=== PATIENT | female | born 1955 | race Caucasian/White ===

== ENCOUNTER 2017-01-16 01:25 | Observation (INO) | payer MEDICARE, OTHER ==
--- NOTE | ~2017-01-16 | HP ---
History And Physical [address] [address] NAME: MARIELA CHARLES : 57 STATUS : ADM Dillon PAT#: [id number] AGE: 61 ADM/REG DATE : 01/16/17 MR#: [id number] REPORT SERV DATE: 01/16/17 DICTATED BY: JIM GIVENS DATE: 01/16/17 REPORT STATUS : Draft TRANSCRIBED BY: MODL DATE: 01/16/17 DATE OF ADMISSION: 01/16/2017 CHIEF COMPLAINT: A 61-year-old female presenting with shortness of breath. HISTORY OF PRESENT ILLNESS: The patient's history was obtained through careful interview with the patient, coupled with review of [email or web address] medical records. The patient for the last six days has been dealing with "allergies." She believes this has led to sinus drainage and increasing cough productive of a thick yellowish sputum. She has had increasing shortness of breath characterized by dyspnea on exertion and a prominent wheeze. Today, she tried to spend sometime outside to do some arts and crafts activity and this only worsened her "allergies" and increasing shortness of breath. She describes chest discomfort in the middle of her chest, exacerbated by coughing and breathing, has a fullness and blocking quality, 5/10 severity. She has chronic neck discomfort about an 8 to 9/10 severity, aching, no radiation. She describes anxiety. She feels as if "ants are crawling all over me" and just restless and it is particularly evident in her legs. She describes subjective fevers and chills and a temperature measured up to 100.7 at home. No depression. REVIEW OF SYSTEMS: Otherwise, a 14-point review of systems was obtained and was negative. PAST MEDICAL HISTORY: 1. Asthma, seen by Dr. Sheridan. 2. Bipolar disorder with anxiety and depression. 3. Seizure disorder but possible pseudoseizure disorder (?). 4. Gastroesophageal reflux disorder. 5. Elevated cholesterol. 6. Hypertension. 7. Migraine headaches. 8. Hypothyroidism. 9. Nephrolithiasis. 10.Obstructive sleep apnea, on CPAP. 11.Fibromyalgia. 12.Chronic severe allergies, seen by Dr. Knapp. 13.Negative catheterization of the heart in 2010. History And Physical [address] [address] NAME: MARIELA CHARLES : 57 STATUS : ADM Dillon PAT#: [id number] AGE: 61 ADM/REG DATE : 01/16/17 MR#: [id number] REPORT SERV DATE: 01/16/17 DICTATED BY: JIM GIVENS DATE: 01/16/17 REPORT STATUS : Draft TRANSCRIBED BY: CHRIS DATE: 01/16/17 PAST SURGICAL HISTORY: 1. Cholecystectomy. 2. Tubal ligation. 3. Hysterectomy with oophorectomy. 4. Bladder suspension. 5. Cervical spine surgery in 2000. 6. Foot surgery. 7. Sinus surgery x2. ALLERGIES: SULFA, LIPITOR, CIPRO, AND CEFADROXIL. SOCIAL HISTORY: No tobacco abuse. No alcohol abuse. She is , on disability, has two children ages 12 and 15 years old that are "adopted" and live at home. She lives in [place], [place]. FAMILY HISTORY: Father with myocardial infarction in his 40s, CABG at 45 years of age, at 59 years of age. Mother with cervical cancer. Brother had heart attack in his 40s. CURRENT MEDICATIONS: Include nebulizer, tizanidine, spironolactone 50 mg p.o. daily, pravastatin 40 mg p.o. daily, Mirapex 0.25 mg at night, Protonix 40 mg p.o. daily, Singulair 10 mg p.o. daily, Mobic 7.5 mg p.o. b.i.d., levothyroxine 50 mcg p.o. daily, hydrocodone p.r.n., fluoxetine 20 mg p.o. daily, Klonopin 1 mg p.o. b.i.d. as needed, benazepril 40 mg p.o. daily, and Asmanex nasal spray. PHYSICAL EXAMINATION: VITAL SIGNS: Temperature 97.8, pulse 83, blood pressure 87/72, respiratory rate 24, and O2 saturation 98% on room air. GENERAL: An ill-appearing female, in evidence of described distress from shortness of breath and cough. HEENT: Pupils equal, round, and reactive to light. No conjunctival pallor. No scleral icterus. Nares are patent. Oropharynx is clear of obstruction. Moist mucous membranes. NECK: Trachea midline. No thyromegaly. LYMPH: No cervical lymphadenopathy. No supraclavicular lymphadenopathy. RESPIRATORY: The patient has prominent inspiratory and expiratory wheezes on examination. No upper respiratory rhonchi. No rales. A very labored respiratory effort. CARDIOVASCULAR: Regular rate and rhythm. No murmurs, rubs, or gallops. No extremity edema is appreciated. ABDOMEN: Soft, nontender, nondistended. Normal bowel sounds auscultated throughout. No hepatosplenomegaly. DERMATOLOGIC: Warm and dry extremities. No pallor, no cyanosis. PSYCHIATRIC: Normal affect. Good mood. Alert and oriented x3. LABORATORY DATA: White blood cell count 6.6, hemoglobin 12, hematocrit 37, and platelets 278. Sodium 137, potassium 3.8, chloride 101, bicarb 15, BUN 20, creatinine 0.9, and glucose 126. STUDIES: A report of an x-ray at outlying facility was read as "negative." History And Physical [address] [address] NAME: MARIELA CHARLES : 57 STATUS : ADM Dillon PAT#: [id number] AGE: 61 ADM/REG DATE : 01/16/17 MR#: [id number] REPORT SERV DATE: 01/16/17 DICTATED BY: JIM GIVENS DATE: 01/16/17 REPORT STATUS : Draft TRANSCRIBED BY: CHRIS DATE: 01/16/17 ASSESSMENT AND PLAN: 1. Asthma exacerbation. Place on IV Solu-Medrol, DuoNeb nebulizers, doxycycline. Check a chest x-ray here at our facility. 2. Bipolar disorder with anxiety, p.r.n. IV Ativan. 3. Metabolic acidosis. Recheck a basic metabolic panel. Check lactic acid. Check ABG. 4. Obstructive sleep apnea, on CPAP. KPL/MODL Jim Givens M.D. / [id number] CC: Rudolph Vanessa Jr, MD Ted Scoggins, M.D.
--- NOTE | ~2017-01-16 | DS ---
Discharge Summary [facility] [address] [place]. [address] NAME: MARIELA CHARLES : 57 STATUS : DIS Dillon PAT#: [id number] AGE: 61 ADM/REG DATE : 01/16/17 MR#: [id number] REPORT SERV DATE: 01/17/17 DICTATED BY: RAFY CHARLES SCOT DATE: 01/16/17 REPORT STATUS : Draft TRANSCRIBED BY: MODL DATE: 01/16/17 ADMISSION DATE: 01/16/2017 DISCHARGE DATE: 01/16/2017 DISCHARGE DIAGNOSES: 1. Asthma exacerbation. 2. Hypothyroidism with most recent TSH 0.277. 3. Obstructive sleep apnea with current CPAP therapy. 4. Hypertension. 5. History of bipolar disorder. 6. Chronic pain syndrome. DISCHARGE MEDICATIONS: As follows: Doxycycline 100 mg twice a day for 4 more days, Lotensin 40 mg daily, Astelin nasal spray twice a day, Prozac 20 mg daily, Flonase nasal spray daily, Atrovent nasal spray 3 times a day, Mobic 7.5 mg twice a day, prednisone tapering prescription 20 mg two tabs x4 days, 1 tab daily after that for 4 days then half tab daily after that for 4 days, Singulair 10 mg at bedtime, Protonix 40 mg daily, potassium 10 mEq daily, Mirapex 0.25 mg at bedtime, Pravachol 40 mg at bedtime, Aldactone 50 mg daily, Zanaflex 4 mg twice a day, Klonopin 1 mg p.o. twice a day, Asmanex 2 puffs inhaled twice a day, [place] 10/325 one tablet every six hours p.r.n., Ventolin 2 puffs every six hours p.r.n. for shortness of breath. HISTORY OF PRESENT ILLNESS: This is a 61-year-old, white female, presented with shortness of breath. Please see the initial H and P of Dr. Calixto Dukes. This patient is admitted to the Hospitalist Service for further evaluation and treatment, admitted under observation, given IV Solu-Medrol, DuoNeb nebulizers, and started on doxycycline. HOSPITAL COURSE: I saw the patient the following day where she was feeling much better and requesting to go home. On exam, she did have a mild expiratory wheeze but overall symptoms had improved a tremendous amount. She had slept on her CPAP therapy the evening. Lab work revealed a procalcitonin that was negative and did have a TSH that was low at 0.277. She stated that her Synthroid had recently been increased. So I have instructed her to follow up with her primary care in regard to her Synthroid dosage and she has a appointment the following week. Now, her primary care is Dr. Star Doyle. The patient was felt safe for discharge home with the above medication regimen, followup plan. EVARISTO/CHRIS Rafy Charles NP / [id number] Discharge Summary [address] [address] NAME: MARIELA CHARLES : 57 STATUS : DIS Dillon PAT#: [id number] AGE: 61 ADM/REG DATE : 01/16/17 MR#: [id number] REPORT SERV DATE: 01/17/17 DICTATED BY: RAFY CHARLES DATE: 01/16/17 REPORT STATUS : Draft TRANSCRIBED BY: CHRIS DATE: 01/16/17 CC: Rudolph Vanessa Jr, MD
[~2017-01-16 01:25] MED LIST: ALLEGRA180 PO; ATRONASAL3 NAS; ATRONASAL6 NAS; FISH-EPA1000 MG PO; FLONASE NAS; IPRATROPIUM NAS; KLONO1 PO; KLONOPIN PO; KLONOPIN WAF0.25 MG PO; LOTE20 PO; LOTE40 PO; MIRAPEX PO; MIRAPEX250 PO; MOBIC7.5 PO; MYRBETRIQ50 MG PO; NORCO1 TAB PO; NORV25 PO; PROTONIX PO; SYN.025B PO; [UNRECOGNIZED DRUG - OTHER] PO
[2017-01-16] MEDS ORDERED: ASMANEX100 INH (01:59)
[2017-01-16] MEDS ORDERED: KLONO1 PO (02:00)
[2017-01-16] MEDS ORDERED: LOTE40 PO (02:00)
[2017-01-16] MEDS ORDERED: PROZAC PO (02:01)
[2017-01-16] MEDS ORDERED: FLONASE NAS (02:02)
[2017-01-16] MEDS ORDERED: NORCO1 TAB PO (02:02)
[2017-01-16] MEDS ORDERED: MOBIC7.5 PO (02:03)
[2017-01-16] MEDS ORDERED: ATRONASAL3 NAS (02:03)
[2017-01-16] MEDS ORDERED: LEVOTHYROXIN50 MCG PO (02:03)
[2017-01-16] MEDS ORDERED: SINGULAIR1 PO (02:04)
[2017-01-16] MEDS ORDERED: PROTONIX PO (02:04)
[2017-01-16] MEDS ORDERED: MIRAPEX250 PO (02:05)
[2017-01-16] MEDS ORDERED: PRAVACHOL40 MG PO (02:05)
[2017-01-16] MEDS ORDERED: SPIRO50 PO (02:06)
[2017-01-16] MEDS ORDERED: VENTOLIN HFA INH (02:07)
[2017-01-16] MEDS ORDERED: ZANAFLEX 4 MG TA4 MG PO (02:07)
[2017-01-16] MEDS ORDERED: ASTELIN NAS (02:08)
[2017-01-16] MEDS ORDERED: AMOXIL875 PO (02:16)
[2017-01-16] MEDS ORDERED: P20 PO (02:18)
[2017-01-16] MEDS ORDERED: KLOR-CON 1010 MEQ PO (02:25)
[2017-01-16 06:22] LABS: BASOPHILS 0 %; EOSINOPHILS 0 %; HEMOGLOBIN 11.5 g/dL (12.0-16.0); IMMATURE GRANULOCYTES 0.4 %; IMMATURE GRANULOCYTES ABSOLUTE 0.03 10/3/uL (0.0-0.11); LYMPHOCYTES 6.2 %; LYMPHOCYTES ABSOLUTE 0.52 10/3/uL (0.67-4.30); MEAN CORPUS HGB CONC 34.3 g/dL (32.0-36.0); MEAN CORPUSCULAR HEMOGLOB 28.8 pg (26.0-34.0); MEAN PLATELET VOLUME 9.7 fL (9.2-13.0); MONOCYTES 1.2 %; NEUTROPHILS 92.2 %; NEUTROPHILS ABSOLUTE 7.77 10/3/uL (2.02-8.40); PLATELET COUNT 276 10/3/uL (150-400); RED CELL COUNT 3.99 10/6/uL (4.0-5.6)
[2017-01-16 06:23] LABS: HEMATOCRIT 33.5 % (36.0-48.0); MANUAL DIFF NO %; WHITE BLOOD CELLS 8.4 10/3/uL (4.5-10.5)
[2017-01-16 06:31] LABS: INTERNATIONAL NORMAL RATI 1.1 UNITS (-); PARTIAL THROMBO TIME 28.7 SEC (22.5-37.2); PROTIME (NOT ORD) 13.7 SEC (12.0-14.5)
[2017-01-16 06:45] LABS: A/G RATIO 1.1 (0.7-1.9); ALBUMIN 3.7 G/DL (3.5-5.0); ALKALINE PHOSPHATASE 67 U/L (45-117); BUN (BLOOD UREA NITROGEN) 18 MG/DL (6-23); CALCIUM, SERUM 8.5 MG/DL (8.5-10.4); CHLORIDE, SERUM 108 MMOL/L (96-112); CO2 (CARBON DIOXIDE) 21 MMOL/L (24-34); CREATININE 0.87 MG/DL (0.55-1.02); GFR AFRICAN AMERICAN 84 ML/MIN (>=60); GFR NON AFRICAN AMERICAN 72 ML/MIN (>=60); GLOBULIN 3.3 G/DL (2.5-4.1); GLUCOSE, SERUM 128 MG/DL (60-99); POTASSIUM, SERUM 3.7 MMOL/L (3.5-5.3); SGOT(AST) 18 U/L (5-40); SGPT(ALT) 23 U/L (5-65); SODIUM, SERUM 142 MMOL/L (135-148); TOTAL BILIRUBIN 0.3 MG/DL (0-1.2); TROPONIN I <0.02 NG/ML (<0.05); ULTRASENSITIVE TSH 0.277 MCIU/ML (0.358-3.740)
[2017-01-16 07:47] LABS: PROCALCITONIN <0.05 ng/mL (<0.5)
[2017-01-16] MEDS ORDERED: DORYX100 MG PO (12:14)
== END 2017-01-16 12:36 | disposition home or self-care (01) ==
LOC: CDU2 01:25
PROVIDERS: Internal Medicine
DX: R06.02 Shortness of breath (principal); J45.909 Unspecified asthma, uncomplicated; F31.9 Bipolar disorder, unspecified; F41.9 Anxiety disorder, unspecified; K21.9 Gastro-esophageal reflux disease without esophagitis; E78.00 Pure hypercholesterolemia, unspecified; I10 Essential (primary) hypertension; E03.9 Hypothyroidism, unspecified; N20.0 Calculus of kidney; G43.909 Migraine, unspecified, not intractable, without status migrainosus; G47.33 Obstructive sleep apnea (adult) (pediatric); M79.7 Fibromyalgia; Z90.710 Acquired absence of both cervix and uterus; Z98.890 Other specified postprocedural states; Z79.899 Other long term (current) drug therapy; Z79.51 Long term (current) use of inhaled steroids; Z79.891 Long term (current) use of opiate analgesic; Z88.2 Allergy status to sulfonamides; Z88.1 Allergy status to other antibiotic agents
CPT/HCPCS: 36600; 71010; 80053; 82330; 82803; 82947; 83605; 83735; 83880; 84132; 84145; 84295; 84443; 84484; 85014; 85025; 85610; 85730; 87449; 93005; 94640; 96372; 96374; 96375; A9270-GY; G0378; J2920